=== PATIENT | male | born 1970 | race Caucasian/White ===

== ENCOUNTER 2017-01-07 18:11 | Emergency (ER) | payer SELFPAY ==
[2017-01-07 18:27] VITALS: BP 119/80; PULSE 61; RESP 16; TEMP 98.2; O2SAT 97
[2017-01-07] MEDS ORDERED: Lidocaine 2% w Epi 1:100,000 Inj IJ ONE (19:30)
[2017-01-07] MEDS ORDERED: Bacitracin 500 Units/gm Oint Foilpak UD TOP ONE (20:14)
--- NOTE | 2017-01-07 20:18 | C.PDOC ---
History Of Present Illness 46 year old male who presents to the ER with a complaint of a laceration to the left ankle that occurred at 10:00 while he was at work. Patient reports his tetanus is up to date; denies weakness or numbness. Time Seen by Provider: 01/07/17 19:01 Chief Complaint (Nursing): Abnormal Skin Integrity History Per: Patient History/Exam Limitations: no limitations Onset/Duration Of Symptoms: Hrs Current Symptoms Are (Timing): Still Present Location Of Injury: Left: Ankle Quality Of Symptoms: Other (Laceration) Recent travel outside of the [place]: No Past Medical History Reviewed: Historical Data, Nursing Documentation, Vital Signs Vital Signs: Last Vital Signs Temp 98.2 F 01/07/17 18:22 Pulse 61 01/07/17 18:22 Resp 16 01/07/17 18:22 BP 119/80 01/07/17 18:22 Pulse Ox 97 01/08/17 00:20 - Medical History PMH: No Chronic Diseases Surgical History: No Surg Hx Family History: States: Unknown Family Hx - Social History Hx Tobacco Use: No Hx Alcohol Use: No Hx Substance Use: No - Immunization History Hx Tetanus Toxoid Vaccination: Yes Hx Influenza Vaccination: No Hx Pneumococcal Vaccination: No Review Of Systems Skin: Positive for: Other (Laceration) Neurological: Negative for: Weakness, Numbness Physical Exam - Physical Exam Appears: Non-toxic Skin: Warm, Dry Head: Atraumatic, Normacephalic Eye(s): bilateral: Normal Inspection, PERRL, EOMI Oral Mucosa: Moist Extremity: Normal ROM (x4), No Tenderness, Other (4cm Y shaped laceration to left ankle) Neurological/Psych: Normal Motor, Normal Sensation Gait: Steady ED Course And Treatment O2 Sat by Pulse Oximetry: 97 (Room air) Pulse Ox Interpretation: Normal Procedure: Wound Repair - Time Performed Time Performed: 20:20 - Time Out Time Out: Side verified, Site verified - Procedure Procedure: Wound Repair: Leg laceration - Consent Obtained Consent obtained: Verbal - Performed by Performed by: Mid-level Provider (Johanny) - Indications Indication(s):: Laceration - Location Location:: Leg Shape:: Other (Y-shaped) Dimensions Length cm: 4 Dimensions width cm: 1 Depth:: Epidermis - Anesthetic Technique Local/Regional Anesthetic:: Lidocaine 1% w/epi - Debris Debris:: None - Irrigated Irrigated with ml of normal saline: 100 - Complexity Complexity:: Simple (one layer) - Wound repair method Sutures:: # (Four), Size (4-0 prolene and 4 jb), Technique (interrupted) - Patient tolerated procedure Patient Tolerated Procedure:: Well Medical Decision Making Medical Decision Making: Plan: * Laceration repair * Bacitracin Wound was cleansed, sutured, and dressed; will discharge home with wound care instructions and advised to follow up for wound check. Disposition - Disposition Referrals: [facility] [Outside] Disposition: HOME/ ROUTINE Disposition Time: 20:16 Condition: GOOD Additional Instructions: Wash the wound twice a day with soap and water and apply bacitracin. [place] to be removed within 14 days. Follow up with the medical doctor within 1-2 days. Return if worsened. Prescriptions: Bacitracin Ointment [Bacitracin] 30 gm TOP BID #1 tube Instructions: Laceration (ED) Forms: [employer] (Bhutanese) Print Language: CROATIAN - Clinical Impression Clinical Impression: Leg laceration - Scribe Statement The provider has reviewed the documentation as recorded by the Scribe Demetrio Perez All medical record entries made by the Scribe were at my direction and personally dictated by me. I have reviewed the chart and agree that the record accurately reflects my personal performance of the history, physical exam, medical decision making, and the department course for this patient. I have also personally directed, reviewed, and agree with the discharge instructions and disposition.
== END 2017-01-07 20:34 | disposition home or self-care (01) ==
LOC: C.ER 18:11
DX: S91.012A Laceration without foreign body, left ankle, initial encounter (principal); W25.XXXA Contact with sharp glass, initial encounter; Y93.89 Activity, other specified; Y92.89 Other specified places as the place of occurrence of the external cause

== ENCOUNTER 2017-01-28 17:43 | Emergency (ER) | payer SELFPAY ==
[2017-01-28 17:50] VITALS: BP 126/75; PULSE 61; RESP 20; TEMP 98.4; O2SAT 97
--- NOTE | 2017-01-28 18:23 | C.PDOC ---
History Of Present Illness 46 y/o male presents to ED for staple and suture removal from left lower leg that were placed 2 weeks ago. Otherwise, denies any pain, fever, surrounding redness, swelling, or any other complaints at this time. Time Seen by Provider: 01/28/17 18:06 Chief Complaint (Nursing): Abnormal Skin Integrity History Per: Patient History/Exam Limitations: no limitations Onset/Duration Of Symptoms: Days Current Symptoms Are (Timing): Still Present Location Of Injury: Left: Leg Quality Of Symptoms: denies: Painful, Draining Recent travel outside of the [place]: No Additional History Per: Patient Past Medical History Reviewed: Historical Data, Nursing Documentation, Vital Signs Vital Signs: Last Vital Signs Temp 98.4 F 01/28/17 17:48 Pulse 61 01/28/17 17:48 Resp 20 01/28/17 17:48 BP 126/75 01/28/17 17:48 Pulse Ox 97 01/28/17 19:45 - Medical History PMH: No Chronic Diseases Family History: States: Unknown Family Hx - Social History Hx Tobacco Use: No Hx Alcohol Use: No Hx Substance Use: No - Immunization History Hx Tetanus Toxoid Vaccination: Yes Hx Influenza Vaccination: No Hx Pneumococcal Vaccination: No Review Of Systems Except As Marked, All Systems Reviewed And Found Negative. Constitutional: Negative for: Fever, Chills Musculoskeletal: Negative for: Leg Pain (suture removal from left lower leg) Skin: Positive for: Other Neurological: Negative for: Weakness, Numbness Physical Exam - Physical Exam Appears: Non-toxic, No Acute Distress Skin: Normal Color, Warm, Dry, Other (sutures and jb intact to left lower leg. Wound is well healed, no surrounding erythema or discharge) Head: Atraumatic, Normacephalic Extremity: Normal ROM, No Tenderness, Capillary Refill (<2 sec.), No Deformity, No Swelling Neurological/Psych: Oriented x3, Normal Speech, Normal Motor, Normal Sensation ED Course And Treatment O2 Sat by Pulse Oximetry: 97 (on RA) Pulse Ox Interpretation: Normal Progress Note: Suture and jb removed from left lower leg, without any difficulty. Pt tolerated procedure well, no immediate complications. Pt is being discharged home, and is instructed to follow up with PMD in 1-2 days. Disposition - Disposition Disposition: HOME/ ROUTINE Disposition Time: 18:22 Condition: STABLE Additional Instructions: Gildardo elisenica en 2-5 alvarez sin falta, para mas evaluacin. Volver a la malina de emergencia en cualquier momento si los sntomas persisten o empeoran. Instructions: Acute Wound Care (ED) Forms: [employer] (Senegalese) Print Language: GHANAIAN - Clinical Impression Clinical Impression: Visit for suture removal - PA / HYPERBARIC TECHNOLOGIST / Resident Statement MD/DO has reviewed & agrees with the documentation as recorded. - Scribe Statement The provider has reviewed the documentation as recorded by the Scribe Jacques Wood All medical record entries made by the Scribe were at my direction and personally dictated by me. I have reviewed the chart and agree that the record accurately reflects my personal performance of the history, physical exam, medical decision making, and the department course for this patient. I have also personally directed, reviewed, and agree with the discharge instructions and disposition.
== END 2017-01-28 18:31 | disposition home or self-care (01) ==
LOC: C.ER 17:43
DX: Z48.02 Encounter for removal of sutures (principal)

== ENCOUNTER 2017-09-17 00:26 | Emergency (ER) | payer SELFPAY ==
--- NOTE | 2017-09-17 01:30 | C.PDOC ---
History Of Present Illness Pt presents with mid epigastric pain which prevents him from sleeping. Has taken some mylanta without relief. No f/c/n/v. Tolerating po. Time Seen by Provider: 09/17/17 01:30 Chief Complaint (Nursing): Abdominal Pain History Per: Patient History/Exam Limitations: no limitations Onset/Duration Of Symptoms: Days Current Symptoms Are (Timing): Still Present Context: Food Severity: Moderate Pain Scale Rating Of: 4 Location Of Pain/Discomfort: Epigastric Radiation Of Pain To:: None Quality Of Discomfort: Aching, Burning Associated Symptoms: denies: Fever, Chills, Nausea, Vomiting Exacerbating Factors: Food Alleviating Factors: None Last Bowel Movement: Yesterday Recent travel outside of the [place]: No Additional History Per: Patient Past Medical History Reviewed: Historical Data, Nursing Documentation, Vital Signs Vital Signs: Last Vital Signs Temp 98 F 09/17/17 04:11 Pulse 89 09/17/17 04:11 Resp 20 09/17/17 04:11 BP 131/70 09/17/17 04:11 Pulse Ox 98 09/17/17 04:11 Family History: States: No Known Family Hx - Social History Hx Tobacco Use: No Hx Alcohol Use: Yes Hx Substance Use: No - Immunization History Hx Tetanus Toxoid Vaccination: Yes Hx Influenza Vaccination: No Hx Pneumococcal Vaccination: No Review Of Systems Constitutional: Negative for: Fever, Chills Cardiovascular: Negative for: Chest Pain Respiratory: Negative for: Shortness of Breath Gastrointestinal: Positive for: Abdominal Pain (midepigastric). Negative for: Nausea, Vomiting Genitourinary: Negative for: Dysuria Musculoskeletal: Negative for: Back Pain Skin: Negative for: Rash Neurological: Negative for: Weakness Psych: Negative for: Anxiety Physical Exam - Physical Exam Appears: Non-toxic Skin: Warm, Dry Head: Normacephalic Eye(s): bilateral: Normal Inspection Oral Mucosa: Moist Neck: Supple Chest: Symmetrical Cardiovascular: Rhythm Regular Respiratory: No Rales, No Rhonchi, No Wheezing Gastrointestinal/Abdominal: Soft, Tenderness (mid epigastric), No Distention Back: Normal Inspection Extremity: Normal ROM Extremity: Bilateral: Atraumatic Neurological/Psych: Oriented x3 Gait: Steady ED Course And Treatment - Laboratory Results Result Diagrams: 09/17/17 01:43 09/17/17 01:43 ECG: Interpreted By Me ECG Rhythm: Sinus Rhythm (50), Nonspecific Changes O2 Sat by Pulse Oximetry: 99 Pulse Ox Interpretation: Normal Reevaluation Time: 05:30 Reassessment Condition: Improved Disposition Counseled Patient/Family Regarding: Studies Performed, Diagnosis, Need For Followup, Rx Given - Disposition Referrals: [facility] [Outside] [facility] [Outside] Disposition: HOME/ ROUTINE Disposition Time: 01:30 Condition: FAIR Prescriptions: Pantoprazole Sodium [Protonix] 40 mg PO DAILY #15 ect Instructions: Gastritis (DC), Ulcer and Gastritis Diet Forms: [employer] (Uzbek) Print Language: TELUGU - Clinical Impression Clinical Impression: Abdominal pain, Gastritis
[2017-09-17] MEDS ORDERED: Sodium Chloride 0.9% 1,000 ML IV ONE (01:31)
[2017-09-17 01:46] LABS: BASO % 0.6 % (0.0-2.0); EOS # 0.3 K/uL (0.0-0.7); EOS % 3.7 % (0.0-4.0); HEMOGLOBIN 13.8 g/dL (12.0-18.0); LYMPH # 2.5 K/uL (1.0-4.3); LYMPH % 32.4 % (20.0-40.0); MEAN PLATELET VOLUME 8.7 fL (7.2-11.7); MONO # 0.6 K/uL (0.0-0.8); MONO % 7.2 % (0.0-10.0); NEUT # 4.4 K/uL (1.8-7.0); NEUT % 56.1 % (50.0-75.0); RBC 4.62 Mil/uL (4.40-5.90); RED CELL DISTRIBUTION WIDTH 12.4 % (11.5-14.5); WHITE BLOOD COUNT 7.8 K/uL (4.8-10.8)
[2017-09-17] MEDS ORDERED: Sodium Chloride 0.9% 1,000 ML ONE (01:46)
[2017-09-17 01:49] LABS: URINE BILIRUBIN NEGATIVE (NEGATIVE); URINE CLARITY Clear (Clear); URINE COLOR Yellow (YELLOW); URINE GLUCOSE (UA) NORMAL (Normal); URINE LEUKOCYTE ESTERASE NEG Leu/uL (Negative); URINE PROTEIN NEGATIVE (NEGATIVE); URINE UROBILINOGEN NORMAL mg/dL (0.2-1.0)
[2017-09-17 01:55] LABS: PROTHROMBIN TIME 11.3 SECONDS (9.7-12.2)
[2017-09-17 01:59] LABS: ALB/GLOB RATIO 1.2 (1.0-2.1); ALBUMIN 4.2 g/dL (3.5-5.0); ALT/SGPT 34 U/L (21-72); AST/SGOT 30 U/L (17-59); BLOOD UREA NITROGEN 19 mg/dL (9-20); CALCIUM 8.8 mg/dl (8.6-10.4); GFR AFRICAN-AMERICAN > 60; GFR NON-AFRICAN AMERICAN > 60; LIPASE 71 U/L (23-300)
[2017-09-17 02:19] LABS: URINE BLOOD TRACE (NEGATIVE)
[2017-09-17] MEDS ORDERED: Iodixanol 320 MG/ML 100 ML BOTTLE IV ONE (04:10)
[2017-09-17 04:12] VITALS: RESP 20
--- NOTE | 2017-09-17 05:22 | CT ---
EXAM: CT Abdomen and Pelvis With Intravenous Contrast CLINICAL HISTORY: 46 years old, male; Pain; Abdominal pain; Patient HX: 06-10-15; Additional info: Mid epigastric pain TECHNIQUE: Axial computed tomography images of the abdomen and pelvis with intravenous contrast. All CT scans at this facility use one or more dose reduction techniques, viz.: automated exposure control; ma/kV adjustment per patient size (including targeted exams where dose is matched to indication; i.e. head); or iterative reconstruction technique. 634 images are submitted. Axial images are submitted in soft tissue and lung windows. Coronal and sagittal reformatted images were created and reviewed. CONTRAST: 100 mL of [id number] administered intravenously. COMPARISON: No relevant prior studies available. FINDINGS: Lung bases: Mild parabronchial cuffing, with hazy patchy groundglass opacity to the lung bases which can be seen with bronchitis, reactive airway disease or viral pneumonitis versus mild failure. Mediastinum: Possible small hiatal hernia. ABDOMEN: Liver: Possible fatty infiltration of the liver. Gallbladder and bile ducts: Unremarkable. No ductal dilation. Pancreas: Unremarkable. No mass. No ductal dilation. Spleen: Unremarkable. No splenomegaly. Adrenals: Unremarkable. No mass. Kidneys and ureters: Unremarkable. No solid mass. No hydronephrosis. Stomach and bowel: Moderate amount of stool in the colon. Nonspecific colonic wall thickening. Correlation with patient's clinical history of constipation versus stool related colitis versus under distention is recommended. Nonspecific gastric thickening likely due to under distention. Correlation with clinical data is recommended if gastritis is suspected. There are nonspecific fluid filled small bowel loops. These findings can represent ileus versus enteritis versus slow transit versus peristalsis. Diverticulosis. Appendix: Appendix is seen and is top normal in thickness measuring 6 to 7 mm with no periappendiceal stranding. PELVIS: Bladder: Partially decompressed bladder with bladder wall thickening. Correlation with urinalysis is recommended only if clinical cystitis is suspected. Reproductive: Bilateral hydrocele. Prostate gland is seen. ABDOMEN and PELVIS: Intraperitoneal space: Unremarkable. No free air. No significant fluid collection. Bones/joints: No acute fracture. No dislocation. Soft tissues: Unremarkable. Vasculature: Unremarkable. No abdominal aortic aneurysm. Lymph nodes: Subcentimeter para-aortic lymph nodes. Multiple subcentimeter mesenteric and ileocolic lymph nodes. Findings are nonspecific but may represent mesenteric adenitis. IMPRESSION: No acute findings.
[2017-09-17 05:41] VITALS: BP 138/70; PULSE 87; TEMP 97.9; O2SAT 98
== END 2017-09-17 05:41 | disposition home or self-care (01) ==
LOC: C.ER 00:26
DX: K29.70 Gastritis, unspecified, without bleeding (principal)
CPT/HCPCS: 74177; 80053; 81001; 83690; 85025; 85610; 85730; 96374; 96375; 99285; C9113; J1885; J7040; Q9967

== ENCOUNTER 2017-09-18 21:39 | Emergency (ER) | payer OTHER ==
[2017-09-18 21:50] VITALS: PULSE 61; RESP 14; TEMP 97.6; O2SAT 100
--- NOTE | 2017-09-18 22:02 | C.PDOC ---
History Of Present Illness 46 y/o male presents to ED for persistent abdominal pain. Patient was seen yesterday in ER by . CT scan was significant only for abdominal mesenteric adenitis and he was prescribed protonix, which he took today. Denies any other physical complaints. Pt non compliant with NSIDS. Time Seen by Provider: 09/18/17 21:53 Chief Complaint (Nursing): Abdominal Pain History Per: Patient History/Exam Limitations: no limitations Onset/Duration Of Symptoms: Hrs Current Symptoms Are (Timing): Still Present Location Of Pain/Discomfort: Diffuse Radiation Of Pain To:: None Quality Of Discomfort: "Pain" Associated Symptoms: denies: Fever, Chills, Nausea, Vomiting, Diarrhea Exacerbating Factors: None Alleviating Factors: None Recent travel outside of the [place]: No Past Medical History Reviewed: Historical Data, Nursing Documentation, Vital Signs Vital Signs: Last Vital Signs Temp 97.6 F 09/18/17 21:47 Pulse 61 09/18/17 21:47 Resp 14 09/18/17 21:47 BP 150/90 09/18/17 22:12 Pulse Ox 100 09/18/17 22:48 - Medical History PMH: No Chronic Diseases Surgical History: No Surg Hx Family History: States: Unknown Family Hx - Social History Hx Tobacco Use: No Hx Alcohol Use: Yes Hx Substance Use: No - Immunization History Hx Tetanus Toxoid Vaccination: Yes Hx Influenza Vaccination: No Hx Pneumococcal Vaccination: No Review Of Systems Constitutional: Negative for: Fever, Chills Gastrointestinal: Positive for: Abdominal Pain. Negative for: Nausea, Vomiting , Diarrhea Neurological: Negative for: Weakness, Numbness Physical Exam - Physical Exam Appears: Non-toxic, No Acute Distress Skin: Normal Color, Warm, Dry Eye(s): bilateral: Normal Inspection Oral Mucosa: Moist Neck: Supple Chest: Symmetrical, No Tenderness Cardiovascular: Rhythm Regular Respiratory: No Decreased Breath Sounds, No Rales, No Rhonchi, No Wheezing Gastrointestinal/Abdominal: Soft, Tenderness (Mild vague ) Extremity: No Tenderness Extremity: Bilateral: Normal Color And Temperature, Normal ROM Neurological/Psych: Oriented x3, Normal Speech, Normal Cognition ED Course And Treatment O2 Sat by Pulse Oximetry: 100 (RA) Pulse Ox Interpretation: Normal Medical Decision Making Medical Decision Making: last night normal labs and CT abd/pelvis c/w mesenteric adenitis, pt non- compliant with NSAIDS and poor insight in to prior eval Belly benign, pt defers repeat w/u with informed consent and better education about his present illness. -Findings and diagnosis reviewed. Disposition Doctor Will See Patient In The: Office Counseled Patient/Family Regarding: Studies Performed, Diagnosis - Disposition Referrals: [facility] [Outside] Disposition: HOME/ ROUTINE Disposition Time: 22:02 Condition: GOOD Additional Instructions: inflammacion' de los glandulos lymphaticos del abdomen- NO es peligroso- Sigue Ibuprofeno 600 mg cada 6 horas cada 6 horas joseph necessario dieta blanda por 2 mario mas Estas Sintomas van a durarar joseph soraida samena mas- regressa si las sintoma se emporan o' cambian significantemente. Instructions: Mesenteric Lymphadenitis (DC) Forms: [employer] (Namibian) Print Language: PERSIAN - Clinical Impression Clinical Impression: Mesenteric adenitis - Scribe Statement The provider has reviewed the documentation as recorded by the Scribe Jeremie Roberts All medical record entries made by the Scribe were at my direction and personally dictated by me. I have reviewed the chart and agree that the record accurately reflects my personal performance of the history, physical exam, medical decision making, and the department course for this patient. I have also personally directed, reviewed, and agree with the discharge instructions and disposition.
[2017-09-18 22:20] VITALS: BP 150/90
== END 2017-09-18 22:14 | disposition home or self-care (01) ==
LOC: C.ER 21:39
DX: I88.0 Nonspecific mesenteric lymphadenitis (principal); Z91.14 Patient's other noncompliance with medication regimen